=== PATIENT | female | born 1945 | race Caucasian/White ===

== ENCOUNTER 2020-06-22 12:36 | Emergency (ER) | payer MEDICARE ==
[~2020-06-22] VITALS: Ht 160 cm; Wt 91.0 kg
--- NOTE | 2020-06-22 12:43 | NUR ---
triage: patient arrives with high blood pressure she reports 224/106 at 11:24 this morning. She was seen for this last sat at [facility], they discharged her after giving lisinopril according to her. Dr Ramsey her MD instructed her to return to ER if BP remained high.
--- NOTE | 2020-06-22 13:02 | NUR ---
PT CAME IN CO "MY BP HAS BEEN GETTING HIGH. I HAVE BEEN TAKING MY ATENOLOL AND LISINOPRIL LIKE I AM SUPPOSED TO BUT IT HAS BEEN HIGH. 200S/100S AT HOME CONSISTENTLY. STARTED LAST WEDNESDAY" PT DENIES CHEST PAIN. PT IS RESTING IN [facility]. EKG COMPLETE. CONNECTED TO ALL MONITORING EQUIPMENT. WARM BLANKET PROVIDED
[2020-06-22] MEDS ORDERED: HYDROCHLOROTHIAZIDE 25 MG TABLET PO ONE (13:30)
[2020-06-22 13:36] LABS: BASOPHILS % (AUTO) 1 % (0-1); EOSINOPHILS % (AUTO) 2 % (1-7); LYMPHOCYTES % (AUTO) 23 % (22-44); MEAN CORPUSCULAR HEMOGLOBIN 28.6 pg (27.0-34.8); MEAN CORPUSCULAR HGB CONC 33.4 g/dL (32.4-35.8); MEAN PLATELET VOLUME 8.5 fL (7.4-10.4); MONOCYTES % (AUTO) 9 % (2-9); NEUTROPHILS % (AUTO) 66 % (42-75); PLATELET COUNT 237 x10^3/uL (130-400); RED CELL DISTRIBUTION WIDTH 14.1 % (9.6-15.2)
[2020-06-22 13:40] LABS: MD NO
[2020-06-22 13:47] LABS: ALBUMIN 3.2 g/dL (3.4-5.0); ANION GAP 5 mmol/L (5-15); CALCIUM 8.8 mg/dL (8.5-10.1); CHLORIDE 113 mmol/L (98-107); CREATININE 1.01 mg/dL (0.55-1.02)
[2020-06-22 14:08] VITALS: BP 180/79
--- NOTE | 2020-06-22 14:09 | NUR ---
patient medicated per emar, vss, nadn.
== END 2020-06-22 15:17 | disposition home or self-care (01) ==
LOC: ED 13:41
DX: I10 Essential (primary) hypertension (principal); G43.909 Migraine, unspecified, not intractable, without status migrainosus; R94.31 Abnormal electrocardiogram [ECG] [EKG]
CPT/HCPCS: 36415; 80048; 82040; 85025; 93005; 99284